=== PATIENT | female | born 1990 | race African-American/Black ===

== ENCOUNTER 2016-12-29 18:37 | Emergency (ER) | payer SELFPAY ==
[2016-12-29 18:41] VITALS: BP 128/68; PULSE 86
[2016-12-29 18:43] VITALS: BP 118/64; RESP 18; O2SAT 98
[2016-12-29 18:44] VITALS: BP 118/64; PULSE 97; RESP 18; O2SAT 100
[2016-12-29] MEDS ORDERED: SODIUM CHLOR 0.9% 1000 ML INJ 1,000 ML IV ONE (18:47)
[2016-12-29] MEDS ORDERED: PANT20 PO (18:49)
[2016-12-29] MEDS ORDERED: PROP10TA6 PO (18:53)
--- NOTE | 2016-12-29 18:55 | PD ---
Physical Exam Narrative Patient was seen by ED physician and signed out to me. Data Data Last Documented VS Vital Signs Date Time Temp Pulse Resp B/P (MAP) Pulse Ox O2 Delivery O2 Flow Rate FiO2 12/29/16 19:05 16 98 Room Air 12/29/16 18:44 97 Orders Orders Electrocardiogram (12/29/16 18:47) Beta Hcg (Quant/Titer) (12/29/16 18:47) Ed Urine Pregnancytest Poc (12/29/16 18:47) Complete Blood Count With Diff (12/29/16 18:47) Comprehensive Metabolic Panel (12/29/16 18:47) Urinalysis - C+S If Indicated (12/29/16 18:47) Ecg Monitoring (12/29/16 18:47) Iv Access Insert/Monitor (12/29/16 18:47) Oximetry (12/29/16 18:47) Sodium Chloride 0.9% Flush (Ns Flush) (12/29/16 19:00) Sodium Chlor 0.9% 1000 Ml Inj (Ns 1000 M (12/29/16 18:47) Morphine Inj (Morphine Inj) (12/29/16 19:00) Ondansetron Inj (Zofran Inj) (12/29/16 19:00) Metoclopramide Inj (Reglan Inj) (12/29/16 19:00) Diphenhydramine Inj (Benadryl Inj) (12/29/16 19:00) Ct Abd/Pel W/O Iv Contrast (12/29/16 18:47) Diatrizoate Liq ( Gastroview Liq) (12/29/16 19:35) Labs Laboratory Tests Test 12/29/16 19:25 White Blood Count 9.9 TH/MM3 Red Blood Count 4.61 MIL/MM3 Hemoglobin 13.6 GM/DL Hematocrit 41.2 % Mean Corpuscular Volume 89.4 FL Mean Corpuscular Hemoglobin 29.6 PG Mean Corpuscular Hemoglobin Concent 33.1 % Red Cell Distribution Width 14.5 % Platelet Count 256 TH/MM3 Mean Platelet Volume 7.6 FL Neutrophils (%) (Auto) 59.2 % Lymphocytes (%) (Auto) 32.8 % Monocytes (%) (Auto) 7.2 % Eosinophils (%) (Auto) 0.6 % Basophils (%) (Auto) 0.2 % Neutrophils # (Auto) 5.9 TH/MM3 Lymphocytes # (Auto) 3.2 TH/MM3 Monocytes # (Auto) 0.7 TH/MM3 Eosinophils # (Auto) 0.1 TH/MM3 Basophils # (Auto) 0.0 TH/MM3 CBC Comment DIFF FINAL Differential Comment Urine Color LIGHT-YELLOW Urine Turbidity CLEAR Urine pH 7.0 Urine Specific [place] 1.006 Urine Protein NEG mg/dL Urine Glucose (UA) NEG mg/dL Urine Ketones NEG mg/dL Urine Occult Blood TRACE Urine Nitrite NEG Urine Bilirubin NEG Urine Urobilinogen LESS THAN 2.0 MG/DL Urine Leukocyte Esterase NEG Urine WBC LESS THAN 1 /hpf Urine Squamous Epithelial Cells 4 /hpf Urine Amorphous Sediment RARE Microscopic Urinalysis Comment CULT NOT INDICATED Blood Urea Nitrogen 6 MG/DL Creatinine 0.82 MG/DL Random Glucose 80 MG/DL Total Protein 7.4 GM/DL Albumin 3.8 GM/DL Calcium Level 8.7 MG/DL Alkaline Phosphatase 53 U/L Aspartate Amino Transf (AST/SGOT) 10 U/L Alanine Aminotransferase (ALT/SGPT) 15 U/L Total Bilirubin 0.3 MG/DL Sodium Level 137 MEQ/L Potassium Level 3.6 MEQ/L Chloride Level 103 MEQ/L Carbon Dioxide Level 26.4 MEQ/L Anion Gap 8 MEQ/L Estimat Glomerular Filtration Rate 100 ML/MIN Human Chorionic Gonadotropin, Quant LESS THAN 1 MIU/ML MDM Supervised Visit with ARLYN: No Interpretation(s) [address] scan abdomen pelvis shows ovarian cyst. No acute process. IUD in place. CBC within normal limit. CMP within normal limit. Beta hCG negative. UA is negative. Narrative Course Patient with nausea vomiting diarrhea abdominal pain and syncope. Normal saline solution 1 L bolus. Morphine IV given. Benadryl and Reglan IV given. Diagnosis Primary Impression: Abdominal pain Qualified Codes: R10.31 - Right lower quadrant pain Additional Impressions: Gastroenteritis Ovarian cyst Qualified Codes: N83.209 - Unspecified ovarian cyst, unspecified side Patient Instructions: General Instructions Additional Instruction: Take medications as directed. Clear fluids today and advance diet tomorrow. Follow-up with personal physician. Return if worse. Follow-up with asphalt spreader for ovarian cyst. Med/Other Pt SpecificInfo: Prescription(s) given Scripts Dicyclomine (Bentyl) 10 Mg Cap 10 MG PO TID for Bowel Management, #21 CAP 0 Refills Prov: Nasim Ramirez MD 12/29/16 Promethazine Inj (Phenergan Inj) 25 Mg/Ml Inj 25 MG IM Q6H Y for NAUSEA OR VOMITING, #12 VIAL Prov: Nasim Ramirez MD 12/29/16 Disposition: 01 DISCHARGE HOME Condition: Stable Nasim Ramirez MD Dec 29, 2016 18:55
--- NOTE | 2016-12-29 18:56 | PD ---
HPI Chief Complaint: Syncope/Near-Syncope Time Seen by Provider: 18:46 Travel History International Travel<30 days: No Contact w/Intl Traveler<30days: No Traveled to known affect area: No History of Present Illness HPI 26-year-old female patient with history of thyroid cancer status post treatment , has an IUD, presents to the ER today because of 3 days of abdominal pains, worsened today, felt like something popped, and is currently having a 9 out of 10 pain, and started getting dizzy, nauseous, and several episodes of syncope while in triage and was brought in to an ER with for further evaluation. She denies any fevers, vomiting, or other symptoms. She states that she does not she is . Modifying Factors: None Associated Signs & Symptoms: Abdominal pain, syncope Risk Factors: None PFSH Past Medical History Hx Anticoagulant Therapy: No Cancer: Yes (thyroid) Cardiovascular Problems: No Chemotherapy: No Cerebrovascular Accident: No Diabetes: No Respiratory: No ?: Unknown Past Surgical History Hysterectomy: No Social History Alcohol Use: Yes Tobacco Use: No Substance Use: No Allergies-Medications (Allergen,Severity, Reaction): Coded Allergies: ketorolac (Verified Allergy, Severe, 12/29/16) Reported Meds & Prescriptions Reported Meds & Active Scripts Active Reported Protonix (Pantoprazole Sodium) 20 Mg Tab 20 Mg PO DAILY Review of Systems Except as stated in HPI: all other systems reviewed are Neg Physical Exam Narrative GENERAL: Well-developed young -[place] female patient currently in moderate distress, appears fairly anxious. Awake and oriented 3. SKIN: Focused skin assessment warm/dry. HEAD: Atraumatic. Normocephalic. EYES: Pupils equal and round. No scleral icterus. No injection or drainage. ENT: No nasal bleeding or discharge. Mucous membranes pink and moist. NECK: Trachea midline. No JVD. CARDIOVASCULAR: Regular rate and rhythm. No murmur appreciated. RESPIRATORY: No accessory muscle use. Clear to auscultation. Breath sounds equal bilaterally. GASTROINTESTINAL: Abdomen soft, diffuse abdominal tenderness without guarding or rebound, nondistended. Hepatic and splenic margins not palpable. MUSCULOSKELETAL: No obvious deformities. No clubbing. No cyanosis. No edema. NEUROLOGICAL: Awake and alert. No obvious cranial nerve deficits. Motor grossly within normal limits. Normal speech. PSYCHIATRIC: Appropriate mood and affect; insight and judgment normal. Data Data Last Documented VS Vital Signs Date Time Temp Pulse Resp B/P (MAP) Pulse Ox O2 Delivery O2 Flow Rate FiO2 12/29/16 18:44 97 18 118/64 (82) 100 Orders Orders Electrocardiogram (12/29/16 18:47) Beta Hcg (Quant/Titer) (12/29/16 18:47) Ed Urine Pregnancytest Poc (12/29/16 18:47) Complete Blood Count With Diff (12/29/16 18:47) Comprehensive Metabolic Panel (12/29/16 18:47) Urinalysis - C+S If Indicated (12/29/16 18:47) Ecg Monitoring (12/29/16 18:47) Iv Access Insert/Monitor (12/29/16 18:47) Oximetry (12/29/16 18:47) Sodium Chloride 0.9% Flush (Ns Flush) (12/29/16 19:00) Sodium Chlor 0.9% 1000 Ml Inj (Ns 1000 M (12/29/16 18:47) Ct Abd/Pel W Iv Contrast(Rout) (12/29/16 18:47) Morphine Inj (Morphine Inj) (12/29/16 19:00) Ondansetron Inj (Zofran Inj) (12/29/16 19:00) MDM Medical Decision Making Medical Screen Exam Complete: Yes Emergency Medical Condition: Yes Medical Record Reviewed: Yes Differential Diagnosis Abdominal pain, syncope: Acute intra-abdominal processes versus ectopic versus vasovagal reaction versus dysrhythmias versus dehydration versus metabolic issues Narrative Course Lab work, CAT scan and IV fluids ordered for the patient. Initial workup was initiated in the ER and morphine was given for pain. Physician Communication Physician Communication Case is signed out to Dr. Ramirez at 7 PM pending workup. Diagnosis Primary Impression: Abdominal pain Additional Impression: Syncope Bala Santos MD Dec 29, 2016 18:56
[2016-12-29] MEDS ORDERED: METOCLOPRAMIDE HCL 10 MG/2 ML VIAL IV PUSH ONE (19:00)
[2016-12-29] MEDS ORDERED: SODIUM CHLORIDE 0.9% FLUSH 10 ML FLUSH IVF PRN (19:00)
[2016-12-29] MEDS ORDERED: MORPHINE SULFATE 2 MG/ML INJ IV PUSH ONE (19:00)
[2016-12-29] MEDS ORDERED: diphenhydrAMINE HCL 50 MG/ML VIAL IV PUSH ONE (19:00)
[2016-12-29] MEDS ORDERED: ONDANSETRON HCL 4 MG/2 ML VIAL IV PUSH ONE (19:00)
[2016-12-29 19:05] VITALS: RESP 16; O2SAT 98
[2016-12-29] MEDS ORDERED: DIATRIZOATE MEGLUM/DIATRIZOATE SOD 9 ML CUP ONE (19:35)
[2016-12-29 19:52] LABS: AUTOMATED NEUTROPHIL # 5.9 TH/MM3 (1.8-7.7); BASOPHIL % 0.2 % (0.0-2.0); EOSINOPHIL # 0.1 TH/MM3 (0-0.4); EOSINOPHIL % 0.6 % (0.0-4.0); HEMATOCRIT 41.2 % (35.0-46.0); HEMO FLAGS DIFF FINAL; LYMPH % 32.8 % (9.0-44.0); LYMPHOCYTE # 3.2 TH/MM3 (1.0-4.8); MEAN CELL VOLUME 89.4 FL (80.0-100.0); MEAN CORPUSCULAR HEMOGLOBIN 29.6 PG (27.0-34.0); MEAN CORPUSCULAR HGB CONC 33.1 % (32.0-36.0); MONO % 7.2 % (0.0-8.0); NEUT % 59.2 % (16.0-70.0); PLATELET COUNT 256 TH/MM3 (150-450); RED BLOOD COUNT 4.61 MIL/MM3 (4.00-5.30); RED CELL DISTRIBUTION WIDTH 14.5 % (11.6-17.2); WHITE BLOOD COUNT 9.9 TH/MM3 (4.0-11.0)
[2016-12-29 20:02] LABS: BLOOD, URINE TRACE (NEG); COMMENT (UR) CULT NOT INDICATED; CULTURE IF INDICATED CULT NOT INDICATED; GLUCOSE,URINE NEG (NEG); KETONE, URINE NEG (NEG); NITRITE,URINE NEG (NEG); SQUAMOUS EPITHELIAL CELL URINE 4 /hpf (0-5); URINE COLOR LIGHT-YELLOW (YELLW/STRAW)
[2016-12-29 20:09] LABS: ANION GAP 8 MEQ/L (5-15); AST (GOT) 10 U/L (15-37); BICARBONATE 26.4 MEQ/L (21.0-32.0); BLOOD UREA NITROGEN 6 MG/DL (7-18); CHLORIDE 103 MEQ/L (98-107); GLOMERULAR FILTRATION RATE 100 ML/MIN (>89); POTASSIUM 3.6 MEQ/L (3.5-5.1); SODIUM (NA) 137 MEQ/L (136-145)
[2016-12-29 20:10] LABS: ALT (GPT) 15 U/L (10-53)
--- NOTE | 2016-12-29 20:10 | RADRPT ---
EXAM DATE/TIME: 12/29/2016 19:44 [facility] COMPARISON: No previous studies available for comparison. INDICATIONS : Abdominal pain with nausea and diarrhea. ORAL CONTRAST: No oral contrast ingested. RADIATION DOSE: 13.20 CTDIvol (mGy) MEDICAL HISTORY : Carcinoma, thyroid. SURGICAL HISTORY : None. ENCOUNTER: Initial ACUITY: 3 days PAIN SCALE: 9/10 LOCATION: All quadrants. TECHNIQUE: Volumetric scanning of the abdomen and pelvis was performed. Using automated exposure control and ad justment of the mA and/or kV according to patient size, radiation dose was kept as low as reasonably achievable to obtain optimal diagnostic quality images. DICOM format image data is available electro nically for review and comparison. FINDINGS: The examination is degraded by breathing motion artifact. The lack of oral and IV contrast limits the study as well. LOWER LUNGS: The visualized lower lungs are clear. LIVER: Homogeneous density without lesion. There is no dilation of the biliary tree. No calcified gallston es. SPLEEN: Normal size without lesion. PANCREAS: Within normal limits. KIDNEYS: Normal in size and shape. There is no mass, stone, or hydronephrosis. ADRENAL GLANDS: Within normal limits. VASCULAR: There is no aortic aneurysm. BOWEL/MESENTERY: The stomach, small bowel, and colon demonstrate no acute abnormality. There is no free intraperitone al air or fluid. ABDOMINAL WALL: Within normal limits. RETROPERITONEUM: There is no lymphadenopathy. BLADDER: No wall thickening or mass. REPRODUCTIVE: There is a 3.7 x 4.8 cm cystic lesion within the cul-de-sac just to the right of midline. Hounsfield units are 19. No free fluid within the adnexa or cul-de-sac. An IUD is noted within an otherwise rajiv sly unremarkable uterus. INGUINAL: There is no lymphadenopathy or hernia. MUSCULOSKELETAL: Within normal limits for patient age. CONCLUSION: 1. 4.8 x 3.7 cm cystic lesion involving the cul-de-sac which is likely ovarian in nature. No free flu id. 2. IUD. Shawn Abbott Jr., MD on December 29, 2016 at 20:06 Board Certified Radiologist. This report was verified electronically.
[2016-12-29 20:14] LABS: ALKALINE PHOSPHATASE 53 U/L (45-117); BETA HCG QUANT LESS THAN 1 MIU/ML (0-5); TOTAL BILIRUBIN ADULT 0.3 MG/DL (0.2-1.0)
[2016-12-29] MEDS ORDERED: PROM2INJ IM (20:23)
[2016-12-29] MEDS ORDERED: DICY10 PO (20:23)
--- NOTE | 2016-12-30 18:13 | EKG ---
Date Performed: 12/29/2016 Time Performed: 19:36:36 PTAGE: 26 years EKG: Sinus rhythm WITH MARKED SINUS ARRHYTHMIA BORDERLINE ECG NO PREVIOUS TRACING DOCTOR: Gabriela Manzanares Interpretating Date/Time 12/30/2016 18:10:33
== END 2016-12-29 20:46 | disposition home or self-care (01) ==
LOC: NEPE 18:37
DX: K52.9 Noninfective gastroenteritis and colitis, unspecified (principal); R55 Syncope and collapse; R42 Dizziness and giddiness; I49.8 Other specified cardiac arrhythmias; Z85.850 Personal history of malignant neoplasm of thyroid; Z88.5 Allergy status to narcotic agent; Z79.899 Other long term (current) drug therapy
CPT/HCPCS: 74176; 80053; 81001; 84702; 84703; 85025; 93005; 96374; 96375; 99285; J1200; J2270; J2765; J7030; Q9963